=== PATIENT | male | born 1990 ===

== ENCOUNTER 2017-03-04 22:40 | Emergency (ER) | payer SELFPAY ==
[2017-03-04 22:40] VITALS: BMI 27.8
[2017-03-04 22:47] VITALS: BP 117/72; PULSE 95; RESP 18; TEMP 98.2; O2SAT 97
--- NOTE | 2017-03-04 22:55 | ED PDOC ---
HPI: General Adult Time Seen by Provider: 03/04/17 22:48 Chief Complaint (Nursing): Abdominal Pain History Per: Patient Additional Complaint(s): Cough productive of yellow sputum x 1 week. Reports he experiences pain in the LLQ only when he coughs. States he has no abdominal pain at rest but does experience it when he twists his upper torso. Denies fever, chest pain, SOB, hemoptysis, recent travel, sick contacts, N/V/D, previous abdominal surgery. Last BM was today and was normal. Past Medical History Reviewed: Historical Data, Nursing Documentation, Vital Signs Vital Signs: Last Vital Signs Temp 98.2 F 03/04/17 22:43 Pulse 95 H 03/04/17 22:43 Resp 18 03/04/17 22:43 BP 117/72 03/04/17 22:43 Pulse Ox 97 03/04/17 22:56 - Medical History PMH: Asthma (NO LONGER ON MEDS.-NEVER HOPITALIZED), Fractures (FX. ANKLE) Denies: Chronic Kidney Disease - Family History Family History: States: No Known Family Hx - Social History Current smoker - smoking cessation education provided: Yes SMOKER/PACKS PER DAY:: 2 - Immunization History Hx Tetanus Toxoid Vaccination: No Hx Influenza Vaccination: No Hx Pneumococcal Vaccination: No - Home Medications Home Medications: Ambulatory Orders Medication Instructions Recorded Oseltamivir [Tamiflu] 75 mg PO BID #10 cap 02/06/16 Albuterol HFA [Ventolin HFA 90 2 puff IH [id number] PRN #90 puff 03/04/17 mcg/actuation (8 g)] Promethazine DM [Phenergan DM 5 - 10 ml PO Q8 PRN #120 ml 03/04/17 Syrup] - Allergies Allergies/Adverse Reactions: Allergies Allergy/AdvReac Type Severity Reaction Status Date / Time No Known Allergies Allergy Verified 02/06/16 11:32 Review of Systems ROS Statement: Except As Marked, All Systems Reviewed And Found Negative Respiratory: Positive for: Cough, Sputum Physical Exam - Physical Exam Appears: Positive for: Well, Non-toxic, No Acute Distress Skin: Positive for: Normal Color, Warm. Negative for: Rash Eye Exam: Positive for: Normal appearance ENT: Positive for: Normal ENT Inspection Cardiovascular/Chest: Positive for: Regular Rate, Rhythm Respiratory: Positive for: CNT, Normal Breath Sounds Gastrointestinal/Abdominal: Positive for: Normal Exam, Soft. Negative for: Tenderness (to deep palpation) Back: Positive for: Normal Inspection. Negative for: L CVA Tenderness, R CVA Tenderness Neurologic/Psych: Positive for: Alert, Oriented - ECG O2 Sat by Pulse Oximetry: 97 - Progress ED Course And Treament: Pt. encouraged to stop smoking. Disposition - Clinical Impression Clinical Impression: Acute bronchitis - Patient ED Disposition Is Patient to be Admitted: No - Disposition Referrals: [facility] [Outside] Disposition: Routine/Home Disposition Time: 22:55 Condition: STABLE Prescriptions: Albuterol HFA [Ventolin HFA 90 mcg/actuation (8 g)] 2 puff IH [id number] PRN #90 puff PRN Reason: Cough Promethazine DM [Phenergan DM Syrup] 5 - 10 ml PO Q8 PRN #120 ml PRN Reason: Cough Instructions: How to Stop Smoking (ED), Acute Bronchitis (ED) Forms: [employer] (Macedonian)
== END 2017-03-04 23:08 | disposition home or self-care (01) ==
LOC: H.ER 22:40
DX: J20.9 Acute bronchitis, unspecified (principal); F17.210 Nicotine dependence, cigarettes, uncomplicated; J45.909 Unspecified asthma, uncomplicated